=== PATIENT | female | born 2000 | race Two or more races ===

== ENCOUNTER 2022-06-13 01:15 | Inpatient (IN) | payer OTHER ==
[~2022-06-13] VITALS: Ht 160 cm; Wt 61.2 kg
[2022-06-13] MEDS ORDERED: PRENATAL TABLE1 EAC1 PO (01:45)
[2022-06-13] MEDS ORDERED: IRON325 MG PO (01:45)
== END 2022-06-15 09:38 | disposition home or self-care (01) | DRG 833 ==
LOC: OBS/DEL 01:15 → LDR 02:08 → OBS/DEL 02:08 → OB/GYN 18:33
PROVIDERS: ADMIT Obstetrics & Gynecology; ATTEND Obstetrics & Gynecology
PROC: 4A1HXCZ Monitoring of Products of Conception, Cardiac Rate, External Approach (ICD-10-PCS; principal; 2022-06-13)
PROC: BU4CZZZ Ultrasonography of Uterus and Ovaries (ICD-10-PCS; 2022-06-13)
PROC: BY4FZZZ Ultrasonography of Third Trimester, Single Fetus (ICD-10-PCS; 2022-06-13)
DX: O60.03 Preterm labor without delivery, third trimester (principal); Z3A.33 33 weeks gestation of pregnancy; Z20.822 Contact with and (suspected) exposure to COVID-19

== ENCOUNTER 2022-07-24 17:28 | Inpatient (IN) | payer OTHER ==
[~2022-07-24] VITALS: Ht 160 cm; Wt 64.9 kg
[~2022-07-24 17:28] MED LIST: IRON325 MG PO; PRENATAL TABLE1 EAC1 PO
== END 2022-07-26 15:46 | disposition home or self-care (01) | DRG 807 ==
LOC: OB/GYN 17:28 → LDR 17:28 → OB/GYN 07-25 03:19
PROVIDERS: ADMIT Obstetrics & Gynecology; ATTEND Obstetrics & Gynecology
PROC: 10E0XZZ Delivery of Products of Conception, External Approach (ICD-10-PCS; principal; 2022-07-24)
PROC: 0W8NXZZ Division of Female Perineum, External Approach (ICD-10-PCS; 2022-07-24)
PROC: 4A1HXCZ Monitoring of Products of Conception, Cardiac Rate, External Approach (ICD-10-PCS; 2022-07-24)
DX: O80 Encounter for full-term uncomplicated delivery (principal); Z37.0 Single live birth; Z3A.38 38 weeks gestation of pregnancy; Z20.822 Contact with and (suspected) exposure to COVID-19